=== PATIENT | female | born 1980 | race Two or more races ===

== ENCOUNTER 2019-12-19 17:43 | Emergency (ER) | payer OTHER ==
--- NOTE | 2019-12-19 18:53 | RADIOLOGY REPORT (SQ) ---
EXAM DESCRIPTION: CHEST SINGLE VIEW IMAGES COMPLETED DATE/TIME: 12/19/2019 5:31 pm REASON FOR STUDY: Shortness of breath and cough COMPARISON: None EXAM PARAMETERS: NUMBER OF VIEWS: One view. TECHNIQUE: Single frontal radiographic view of the chest acquired. RADIATION DOSE: NA LIMITATIONS: None. FINDINGS: LUNGS AND PLEURA: No opacities, masses or pneumothorax. No pleural effusion. MEDIASTINUM AND HILAR STRUCTURES: No masses. Contour normal. HEART AND VASCULAR STRUCTURES: Heart normal in size. Normal vasculature. BONES: No acute findings. HARDWARE: None in the chest. OTHER: No other significant finding. IMPRESSION: NO ACUTE RADIOGRAPHIC FINDING IN THE CHEST. TECHNICAL DOCUMENTATION: JOB ID: [id number] 2010 [employer]- All Rights Reserved Reading location - IP/workstation name: [email or web address]
--- NOTE | 2019-12-19 20:03 | ER Document Report ---
ED General - General Chief Complaint: Breathing Difficulty Stated Complaint: COUGH Time Seen by Provider: 12/19/19 20:02 Mode of Arrival: Ambulatory Information source: Patient Notes: lance CARLSON Pt reports came home from an [place] deployment mid. October. had onset of breathing issues where she felt as if she was breathing in a hot sauna called PCP and was told to assume she had Covid. She never developed a fever or was tested. has intermittent bouts SOB where she gets out of breath after walking up her stairs at home. Yesterday she started with a dry cough and palpitations. Pt breathing e/u at this time will CTM. 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 She reports that she is in good physical condition with no physical problems and usually walks stairs and takes a walk around the block on a daily basis. She reports her was disembarked off of [place] during September when President Land[place] advised there was a shut down as far as travel between countries. Her was able to get on a jet private and travel from [place] the [place]. Days later he came down with URI symptoms which lasted for around 2 to 3 days only. He is now asymptomatic. However the patient began to have her symptoms shortly after this as well as her 2 young children ages 2 and 11 months. Patient has had some mild sore throat and rhinorrhea. She denies any joint swellings she denies any hemoptysis or nuchal rigidity or cephalgia. She was asking whether she could get some remdesivir and a mooney antibody test and a interleukin test. Her chest x-ray was NAD and her EKG was normal sinus rhythm. TRAVEL OUTSIDE OF THE [place] IN LAST 30 DAYS: No - but russ dhas ..[place]during CoVid 19 pandemic - HPI Onset: Just prior to arrival Onset/Duration: Sudden Quality of pain: No pain Severity: None Pain Level: 2 Associated symptoms: Chest pain, Shortness of breath, Weakness Exacerbated by: Denies Relieved by: Denies Similar symptoms previously: No Recently seen / treated by doctor: No - Related Data Allergies/Adverse Reactions: No Known Allergies Allergy (Unverified 12/19/19 17:57) Past Medical History - Social History Smoking Status: Never Smoker Chew tobacco use (# tins/day): No Frequency of alcohol use: None Drug Abuse: None Lives with: Family Family History: Reviewed & Not Pertinent Patient has homicidal ideation: No Physical Exam - Vital signs Vitals: Temp Pulse Resp BP Pulse Ox 98.2 F 101 H 18 141/84 H 100 12/19/19 17:45 12/19/19 17:45 12/19/19 17:45 12/19/19 17:45 12/19/19 17:45 Course - Vital Signs Vital signs: Temp Pulse Resp BP Pulse Ox 98.2 F 101 H 18 141/84 H 100 12/19/19 17:47 12/19/19 17:45 12/19/19 17:45 12/19/19 17:45 12/19/19 17:45 - Diagnostic Test Radiology reviewed: Reports reviewed Critical Care Note - Critical Care Note Total time excluding time spent on procedures (mins): 90 Comments: I discussed this case with Dr. Carpenter animal rides manager and he advises he has the information on his computer and he will call this patient for appointment. I advised patient that Dr. Carpenter will be available for her at this week. Dee Dee duggan wear gloves and mask and glasses prior to going to his office. Patient also advises she is not and requests a albuterol inhaler which she has been using at home already. Patient's influenza test was negative and patient's strep test was negative. She was provided with Zithromax 500 mg p.o. and 1 Decadron 10 mill gram p.o. tablet Discharge - Discharge Clinical Impression: DE LA CRUZ (dyspnea on exertion) URI (upper respiratory infection) Qualifiers: URI type: acute pharyngitis Pharyngitis/tonsillitis etiology: unspecified etiology Qualified Code(s): J02.9 - Acute pharyngitis, unspecified Disposition: HOME, SELF-CARE Instructions: Upper Respiratory Illness ([facility]) Additional Instructions: Follow-up with Dr. Carpenter animal rides manager and return to ER as needed take medicines as directed; I am writing also for 1 tablet 80 mg [id number] for you to take Prescriptions: Dexamethasone [Decadron 4 Mg Tablet] 4 mg PO DAILY #4 tablet Albuterol Sulfate [Proair HFA Inhalation Aerosol 8.5 gm MDI] 2 puff IH Q4H PRN #1 mdi PRN Reason: Azithromycin [Zithromax 250 mg Tablet] 250 mg PO ASDIR PRN #6 tablet PRN Reason:
[2019-12-19] MEDS ORDERED: AZITHROMYCIN 250 MG TABLET PO ONE (21:10)
[2019-12-19] MEDS ORDERED: DEXAMETHASONE 4 MG TABLET PO ONE (21:11)
[2019-12-19 21:22] LABS: A TYPE INFLUENZA AG NEGATIVE (NEGATIVE); B INFLUENZA AG NEGATIVE (NEGATIVE)
[2019-12-19 22:14] VITALS: BP 132/82
--- NOTE | 2019-12-19 22:30 | EKG REPORT ---
SEVERITY:- BORDERLINE ECG - SINUS RHYTHM PROBABLE LEFT ATRIAL ABNORMALITY : Confirmed by: Quinn Avelar 19-Dec-2019 22:29:54
== END 2019-12-19 22:12 | disposition home or self-care (01) ==
LOC: ER 17:43
DX: Z20.828 Contact with and (suspected) exposure to other viral communicable diseases (principal); J02.9 Acute pharyngitis, unspecified; R06.00 Dyspnea, unspecified
CPT/HCPCS: 93005; 99285; 87070; 87880; 82962; 87635; 87804; 71045; 93010; J8540